=== PATIENT | female | born 1975 | race Caucasian/White ===

== ENCOUNTER 2019-04-13 14:09 | Emergency (ER) | payer SELFPAY ==
[2019-04-13] MEDS ORDERED: Sodium Chloride 0.9% 1,000 ML IV ONE (14:32)
--- NOTE | 2019-04-13 14:42 | EDM.PDOC ---
ED HPI GENERAL MEDICAL PROBLEM - General Chief Complaint: Syncope Stated Complaint: DIZZINESS Time Seen by Provider: 04/13/19 14:13 Source of Information: Reports: Patient History Limitations: Reports: No Limitations - History of Present Illness INITIAL COMMENTS - FREE TEXT/NARRATIVE: HISTORY AND PHYSICAL: History of present illness: She is a 43-year-old female who presents to the ED today with concern of an episode of dizziness causing her to fall at work just prior to arrival to the ED. Patient states she was on break and she was just going to call again when she started feeling dizzy and went to the ground and sat there. Patient states she did not lose consciousness and did not hit her head. Patient states that she is feeling a little bit better now but does feel somewhat weak. Patient states she has not eaten since yesterday. She denies any health history or any other symptoms or concerns. Patient denies fever, chills, chest pain, shortness of breath, or cough. Denies headache, neck stiff ness, change in vision, syncope, or near syncope. Denies nausea, vomiting, abdominal pain, diarrhea, constipation, or dysuria. Has not noted any blood in urine or stool. Patient has been eating and drinking appropriately. Review of systems: As per history of present illness and below otherwise all systems reviewed and negative. Past medical history: As per history of present illness and as reviewed below otherwise noncontributory. Surgical history: As per history of present illness and as reviewed below otherwise noncontributory. Social history: See social history for further information Family history: As per history of present illness and as reviewed below otherwise noncontributory. Physical exam: General: Patient is alert, oriented, and in no acute distress. Patient laying comfortably on exam table. HEENT: Atraumatic, normocephalic, pupils equal and reactive bilaterally, negative for conjunctival pallor or scleral icterus, mucous membranes moist, TMs normal bilaterally, throat clear, neck supple, nontender, trachea midline. No drooling or trismus noted. No meningeal signs. No hot potato voice noted. Lungs: Clear to auscultation, breath sounds equal bilaterally, chest nontender. Heart: S1S2, regular rate and rhythm without overt murmur Abdomen: Thin, Soft, nondistended, nontender. Negative for masses or hepatosplenomegaly. Negative for costovertebral tenderness. Pelvis: Stable nontender. Genitourinary: Deferred. Rectal: Deferred. Skin: Intact, warm, dry. No lesions or rashes noted. Extremities: Atraumatic, negative for cords or calf pain. Neurovascular unremarkable. Neuro: Awake, alert, oriented. Cranial nerves II through XII unremarkable. Cerebellum unremarkable. Motor and sensory unremarkable throughout. Exam nonfocal. Notes: Discussed importance for follow-up with a primary care provider. Voices understanding and is agreeable to plan of care. Denies any further questions or concerns at this time. Diagnostics: EKG, bedside glucose, CBC, CMP, UA, Blood ketone, VBG, Hgb A1C, Udrug, lipase, orthostatic vitals, head CT Therapeutics: NS, Rocephin Prescription: Bactrim DS Impression: Episode of dizziness, improved Urinary tract infection Drug abuse Plan: 1. Take medication as prescribed. You can alternate ibuprofen and Tylenol as directed for pain and discomfort. 2. Follow-up with primary care provider as discussed. Return to the ED as needed and as discussed. Definitive disposition and diagnosis as appropriate pending reevaluation and review of above. - Related Data Allergies Allergy/AdvReac Type Severity Reaction Status Date / Time No Known Allergies Allergy Verified 04/13/19 14:22 Home Meds: Home Meds . [No Known Home Meds] 04/13/19 [History] Past Medical History - Past Health History Medical/Surgical History: Denies Medical/Surgical History - Infectious Disease History Infectious Disease History: Reports: None Social & Family History - Family History Family Medical History: Noncontributory - Tobacco Use Smoking Status *Q: Current Every Day Smoker Years of Tobacco use: 30 Packs/Tins Daily: 0.5 - Caffeine Use Caffeine Use: Reports: Coffee - Recreational Drug Use Recreational Drug Use: No ED ROS GENERAL - Review of Systems Review Of Systems: Comprehensive ROS is negative, except as noted in HPI. ED EXAM, GENERAL - Physical Exam Exam: See Below (see dictation) Course - Vital Signs Last Recorded V/S: Last Vital Signs Temp 96.1 F 04/13/19 14:23 Pulse 70 04/13/19 14:23 Resp 16 04/13/19 14:23 BP 94/56 L 04/13/19 14:23 Pulse Ox 97 04/13/19 14:23 Orthostatic Blood Pressure [ 100/69 Standing] Orthostatic Blood Pressure [ 99/59 Sitting] Orthostatic Blood Pressure [ 96/54 Supine] - Orders/Labs/Meds Orders: Active Orders 24 hr Category Date Time Status EKG Documentation Completion [RC] STAT Care 04/13/19 14:32 Active Orthostatic Vital Signs [RC] ASDIRECTED Care 04/13/19 14:33 Active CULTURE URINE [RM] Stat Lab 04/13/19 15:50 Received Sodium Chloride 0.9% [Normal Saline] 1,000 ml Med 04/13/19 17:00 Active IV ASDIRECTED Medication Orders Sodium Chloride (Normal Saline) 1,000 mls @ 125 mls/hr IV ASDIRECTED ANTHONY Labs: Laboratory Tests 04/13/19 04/13/19 04/13/19 Range/Units 14:21 14:52 14:52 WBC 11.12 H (4.0-11.0) K/uL RBC 4.27 L (4.30-5.90) M/uL Hgb 13.2 (12.0-16.0) g/dL Hct 39.7 (36.0-46.0) % MCV 93.0 (80.0-98.0) fL MCH 30.9 (27.0-32.0) pg MCHC 33.2 (31.0-37.0) g/dL RDW Std Deviation 45.8 (28.0-62.0) fl RDW Coeff of Steven 13 (11.0-15.0) % Plt Count 205 (150-400) K/uL MPV 10.70 (7.40-12.00) fL Neut % (Auto) 81.8 H (48.0-80.0) % Lymph % (Auto) 12.2 L (16.0-40.0) % [place] % (Auto) 4.3 (0.0-15.0) % Eos % (Auto) 1.5 (0.0-7.0) % Baso % (Auto) 0.2 (0.0-1.5) % Neut # (Auto) 9.1 H (1.4-5.7) K/uL Lymph # (Auto) 1.4 (0.6-2.4) K/uL [place] # (Auto) 0.5 (0.0-0.8) K/uL Eos # (Auto) 0.2 (0.0-0.7) K/uL Baso # (Auto) 0.0 (0.0-0.1) K/uL Nucleated RBC % 0.0 /100WBC Nucleated RBCs # 0 K/uL VBG pH (7.31-7.41) VBG pCO2 (35-45) mmHG VBG pO2 (30-40) mmHG VBG HCO3 (22-30) mEq/L VBG Total CO2 (41-51) mmol/L VBG Base Excess (-3.0-3.0) Sodium 140 (136-145) mmol/L Potassium 3.3 L (3.5-5.1) mmol/L Chloride 105 (98-107) mmol/L Carbon Dioxide 24.6 (21.0-32.0) mmol/L BUN 22 H (7.0-18.0) mg/dL Creatinine 0.9 (0.6-1.0) mg/dL Est Cr Clr Drug Dosing 82.47 mL/min Estimated GFR (MDRD) > 60.0 ml/min Glucose 123 H (74-106) mg/dL POC Glucose 202 H (60-110) mg/dL Hemoglobin A1c (4.5-6.2) % Calcium 8.7 (8.5-10.1) mg/dL Total Bilirubin 0.8 (0.2-1.0) mg/dL AST 10 L (15-37) IU/L ALT 19 (14-63) IU/L Alkaline Phosphatase 46 (46-116) U/L Troponin I < 0.050 (0.000-0.056) ng/mL Total Protein 6.5 (6.4-8.2) g/dL Albumin 3.5 (3.4-5.0) g/dL Globulin 3.0 (2.6-4.0) g/dL Albumin/Globulin Ratio 1.2 (0.9-1.6) Lipase 94 (73-393) U/L HCG, Qual (NEG) Urine Color Urine Appearance Urine pH (5.0-8.0) Ur Specific [place] (1.001-1.035) Urine Protein (NEGATIVE) mg/dL Urine Glucose (UA) (NEGATIVE) mg/dL Urine Ketones (NEGATIVE) mg/dL Urine Occult Blood (NEGATIVE) Urine Nitrite (NEGATIVE) Urine Bilirubin (NEGATIVE) Urine Urobilinogen (<2.0) EU/dL Ur Leukocyte Esterase (NEGATIVE) Urine RBC (0-2/HPF) Urine WBC (0-5/HPF) Ur Epithelial Cells (NONE-FEW) Urine Bacteria (NEGATIVE) Urine Mucus (NONE-MOD) Urine Trichomonas (NEGATIVE) Urine Opiates Screen (NEGATIVE) Ur Oxycodone Screen (NEGATIVE) Urine Methadone Screen (NEGATIVE) Ur Barbiturates Screen (NEGATIVE) Ur Phencyclidine Scrn (NEGATIVE) Ur Amphetamine Screen (NEGATIVE) U Methamphetamines Scrn (NEGATIVE) U Benzodiazepines Scrn (NEGATIVE) U Cocaine Metab Screen (NEGATIVE) U Marijuana (THC) Screen (NEGATIVE) Ketones (NEG) 04/13/19 04/13/19 04/13/19 Range/Units 14:52 14:52 14:52 WBC (4.0-11.0) K/uL RBC (4.30-5.90) M/uL Hgb (12.0-16.0) g/dL Hct (36.0-46.0) % MCV (80.0-98.0) fL MCH (27.0-32.0) pg MCHC (31.0-37.0) g/dL RDW Std Deviation (28.0-62.0) fl RDW Coeff of Steven (11.0-15.0) % Plt Count (150-400) K/uL MPV (7.40-12.00) fL Neut % (Auto) (48.0-80.0) % Lymph % (Auto) (16.0-40.0) % [place] % (Auto) (0.0-15.0) % Eos % (Auto) (0.0-7.0) % Baso % (Auto) (0.0-1.5) % Neut # (Auto) (1.4-5.7) K/uL Lymph # (Auto) (0.6-2.4) K/uL [place] # (Auto) (0.0-0.8) K/uL Eos # (Auto) (0.0-0.7) K/uL Baso # (Auto) (0.0-0.1) K/uL Nucleated RBC % /100WBC Nucleated RBCs # K/uL VBG pH 7.33 (7.31-7.41) VBG pCO2 45 (35-45) mmHG VBG pO2 26 L (30-40) mmHG VBG HCO3 24 (22-30) mEq/L VBG Total CO2 22 L (41-51) mmol/L VBG Base Excess -2.1 (-3.0-3.0) Sodium (136-145) mmol/L Potassium (3.5-5.1) mmol/L Chloride (98-107) mmol/L Carbon Dioxide (21.0-32.0) mmol/L BUN (7.0-18.0) mg/dL Creatinine (0.6-1.0) mg/dL Est Cr Clr Drug Dosing mL/min Estimated GFR (MDRD) ml/min Glucose (74-106) mg/dL POC Glucose (60-110) mg/dL Hemoglobin A1c (4.5-6.2) % Calcium (8.5-10.1) mg/dL Total Bilirubin (0.2-1.0) mg/dL AST (15-37) IU/L ALT (14-63) IU/L Alkaline Phosphatase (46-116) U/L Troponin I (0.000-0.056) ng/mL Total Protein (6.4-8.2) g/dL Albumin (3.4-5.0) g/dL Globulin (2.6-4.0) g/dL Albumin/Globulin Ratio (0.9-1.6) Lipase (73-393) U/L HCG, Qual NEGATIVE (NEG) Urine Color Urine Appearance Urine pH (5.0-8.0) Ur Specific [place] (1.001-1.035) Urine Protein (NEGATIVE) mg/dL Urine Glucose (UA) (NEGATIVE) mg/dL Urine Ketones (NEGATIVE) mg/dL Urine Occult Blood (NEGATIVE) Urine Nitrite (NEGATIVE) Urine Bilirubin (NEGATIVE) Urine Urobilinogen (<2.0) EU/dL Ur Leukocyte Esterase (NEGATIVE) Urine RBC (0-2/HPF) Urine WBC (0-5/HPF) Ur Epithelial Cells (NONE-FEW) Urine Bacteria (NEGATIVE) Urine Mucus (NONE-MOD) Urine Trichomonas (NEGATIVE) Urine Opiates Screen (NEGATIVE) Ur Oxycodone Screen (NEGATIVE) Urine Methadone Screen (NEGATIVE) Ur Barbiturates Screen (NEGATIVE) Ur Phencyclidine Scrn (NEGATIVE) Ur Amphetamine Screen (NEGATIVE) U Methamphetamines Scrn (NEGATIVE) U Benzodiazepines Scrn (NEGATIVE) U Cocaine Metab Screen (NEGATIVE) U Marijuana (THC) Screen (NEGATIVE) Ketones NEGATIVE (NEG) 04/13/19 04/13/19 04/13/19 Range/Units 14:52 15:50 15:50 WBC (4.0-11.0) K/uL RBC (4.30-5.90) M/uL Hgb (12.0-16.0) g/dL Hct (36.0-46.0) % MCV (80.0-98.0) fL MCH (27.0-32.0) pg MCHC (31.0-37.0) g/dL RDW Std Deviation (28.0-62.0) fl RDW Coeff of Steven (11.0-15.0) % Plt Count (150-400) K/uL MPV (7.40-12.00) fL Neut % (Auto) (48.0-80.0) % Lymph % (Auto) (16.0-40.0) % [place] % (Auto) (0.0-15.0) % Eos % (Auto) (0.0-7.0) % Baso % (Auto) (0.0-1.5) % Neut # (Auto) (1.4-5.7) K/uL Lymph # (Auto) (0.6-2.4) K/uL [place] # (Auto) (0.0-0.8) K/uL Eos # (Auto) (0.0-0.7) K/uL Baso # (Auto) (0.0-0.1) K/uL Nucleated RBC % /100WBC Nucleated RBCs # K/uL VBG pH (7.31-7.41) VBG pCO2 (35-45) mmHG VBG pO2 (30-40) mmHG VBG HCO3 (22-30) mEq/L VBG Total CO2 (41-51) mmol/L VBG Base Excess (-3.0-3.0) Sodium (136-145) mmol/L Potassium (3.5-5.1) mmol/L Chloride (98-107) mmol/L Carbon Dioxide (21.0-32.0) mmol/L BUN (7.0-18.0) mg/dL Creatinine (0.6-1.0) mg/dL Est Cr Clr Drug Dosing mL/min Estimated GFR (MDRD) ml/min Glucose (74-106) mg/dL POC Glucose (60-110) mg/dL Hemoglobin A1c 5.3 (4.5-6.2) % Calcium (8.5-10.1) mg/dL Total Bilirubin (0.2-1.0) mg/dL AST (15-37) IU/L ALT (14-63) IU/L Alkaline Phosphatase (46-116) U/L Troponin I (0.000-0.056) ng/mL Total Protein (6.4-8.2) g/dL Albumin (3.4-5.0) g/dL Globulin (2.6-4.0) g/dL Albumin/Globulin Ratio (0.9-1.6) Lipase (73-393) U/L HCG, Qual (NEG) Urine Color YELLOW Urine Appearance SLT CLOUDY Urine pH 6.0 (5.0-8.0) Ur Specific [place] 1.025 (1.001-1.035) Urine Protein NEGATIVE (NEGATIVE) mg/dL Urine Glucose (UA) NEGATIVE (NEGATIVE) mg/dL Urine Ketones NEGATIVE (NEGATIVE) mg/dL Urine Occult Blood TRACE-INTACT H (NEGATIVE) Urine Nitrite POSITIVE H (NEGATIVE) Urine Bilirubin NEGATIVE (NEGATIVE) Urine Urobilinogen 1.0 (<2.0) EU/dL Ur Leukocyte Esterase MODERATE H (NEGATIVE) Urine RBC 3-5 (0-2/HPF) Urine WBC 25-30 (0-5/HPF) Ur Epithelial Cells MANY (NONE-FEW) Urine Bacteria 4+ H (NEGATIVE) Urine Mucus LIGHT (NONE-MOD) Urine Trichomonas PRESENT (NEGATIVE) Urine Opiates Screen NEGATIVE (NEGATIVE) Ur Oxycodone Screen NEGATIVE (NEGATIVE) Urine Methadone Screen NEGATIVE (NEGATIVE) Ur Barbiturates Screen NEGATIVE (NEGATIVE) Ur Phencyclidine Scrn NEGATIVE (NEGATIVE) Ur Amphetamine Screen POSITIVE (NEGATIVE) U Methamphetamines Scrn POSITIVE (NEGATIVE) U Benzodiazepines Scrn NEGATIVE (NEGATIVE) U Cocaine Metab Screen NEGATIVE (NEGATIVE) U Marijuana (THC) Screen NEGATIVE (NEGATIVE) Ketones (NEG) Meds: Medications Generic Name Dose Route Start Last Admin Trade Name Freq PRN Reason Stop Dose Admin Sodium Chloride 1,000 mls @ 125 mls/hr 04/13/19 17:00 Normal Saline IV ASDIRECTED ANTHONY Discontinued Medications Generic Name Dose Route Start Last Admin Trade Name Nida HASASN Reason Stop Dose Admin Sodium Chloride 1,000 mls @ 999 mls/hr 04/13/19 14:32 04/13/19 14:53 Normal Saline IV 04/13/19 15:32 999 mls/hr BOLUS ONE Administration Ceftriaxone Sodium/Dextrose 1 50 mls @ 100 mls/hr 04/13/19 16:22 04/13/19 16: 47 gm/ Premix IV 04/13/19 16:51 100 mls/hr ONETIME ONE Administration Departure - Departure Time of Disposition: 17:05 Disposition: Home, Self-Care 01 Clinical Impression: Episode of dizziness, Drug abuse Urinary tract infection Qualifiers: Urinary tract infection type: acute cystitis Hematuria presence: with hematuria Qualified Code(s): N30.01 - Acute cystitis with hematuria - Discharge Information Referrals: PCP,None [Primary Care Provider] - Forms: ED Department Discharge Additional Instructions: The following information is given to patients seen in the emergency department who are being discharged to home. This information is to outline your options for follow-up care. We provide all patients seen in our emergency department with a follow-up referral. The need for follow-up, as well as the timing and circumstances, are variable depending upon the specifics of your emergency department visit. If you don't have a primary care physician on staff, we will provide you with a referral. We always advise you to contact your personal physician following an emergency department visit to inform them of the circumstance of the visit and for follow-up with them and/or the need for any referrals to a consulting specialist. The emergency department will also refer you to a specialist when appropriate. This referral assures that you have the opportunity for follow-up care with a specialist. All of these measure are taken in an effort to provide you with optimal care, which includes your follow-up. Under all circumstances we always encourage you to contact your private physician who remains a resource for coordinating your care. When calling for follow-up care, please make the office aware that this follow-up is from your recent emergency room visit. If for any reason you are refused follow-up, please contact the [facility] Emergency Department at and asked to speak to the emergency department charge nurse. [address] [facility] [address] [place] [address] [facility] [address] [place] [address] 1. Take medication as prescribed. You can alternate ibuprofen and Tylenol as directed for pain and discomfort. 2. Follow-up with primary care provider as discussed. Return to the ED as needed and as discussed. Sepsis Event Note - Evaluation Sepsis Screening Result: No Definite Risk - Focused Exam Vital Signs: Vital Signs Temp Pulse Resp BP Pulse Ox 04/13/19 14:23 96.1 F 70 16 94/56 L 97 Date Exam was Performed: 04/13/19 Time Exam was Performed: 17:05 - My Orders Last 24 Hours: My Active Orders 04/13/19 14:32 EKG Documentation Completion [RC] STAT 04/13/19 14:33 Orthostatic Vital Signs [RC] ASDIRECTED 04/13/19 15:50 CULTURE URINE [RM] Stat 04/13/19 17:00 Sodium Chloride 0.9% [Normal Saline] 1,000 ml IV ASDIRECTED - Assessment/Plan Last 24 Hours: My Active Orders 04/13/19 14:32 EKG Documentation Completion [RC] STAT 04/13/19 14:33 Orthostatic Vital Signs [RC] ASDIRECTED 04/13/19 15:50 CULTURE URINE [RM] Stat 04/13/19 17:00 Sodium Chloride 0.9% [Normal Saline] 1,000 ml IV ASDIRECTED
[2019-04-13 15:19] LABS: HEMOGLOBIN A1C 5.3 % (4.5-6.2)
[2019-04-13 15:28] LABS: BLOOD UREA NITROGEN,BUN 22 mg/dL (7.0-18.0); CARBON DIOXIDE,CO2 24.6 mmol/L (21.0-32.0); CHLORIDE,CL 105 mmol/L (98-107); GLUCOSE RANDOM 123 mg/dL (74-106); LIPASE 94 U/L (73-393); POTASSIUM,K 3.3 mmol/L (3.5-5.1); SODIUM,NA 140 mmol/L (136-145)
--- NOTE | 2019-04-13 15:34 | CR ---
Chest: Portable view of the chest was obtained. Comparison: No previous chest x-ray. Heart size and mediastinum are normal. Lungs are clear. Bony structures are grossly intact. Impression: 1. Nothing acute is seen on portable chest x-ray. Diagnostic code #1 Study was dictated in [place] Standard Time
[2019-04-13] MEDS ORDERED: cefTRIAXone 1 GM in Premix Bag 1 BAG IV ONE (16:22)
[2019-04-13] MEDS ORDERED: Sodium Chloride 0.9% 1,000 ML IV SCH (17:00)
--- NOTE | 2019-04-13 17:01 | CT ---
Head CT Technique: Multiple axial sections through the brain were obtained. Intravenous contrast was not utilized. Comparison: No prior intracranial imaging is available. Findings: Ventricles along with basal cisterns and sulci over the convexities are within normal limits for the patient's age. No abnormal parenchymal densities are seen. No evidence of intracranial hemorrhage. No midline shift or mass effect is seen. Bone window settings were reviewed. Visualized mastoid sinuses appear to be clear. Visualized paranasal sinuses show nothing acute. No acute calvarial abnormality is appreciated. Impression: 1. Nothing acute is appreciated on noncontrast head CT exam. Diagnostic code #1 Study was dictated in [place] Standard Time
== END 2019-04-13 17:36 | disposition home or self-care (01) ==
LOC: MW.ED 14:09
DX: F19.10 Other psychoactive substance abuse, uncomplicated (principal); N30.01 Acute cystitis with hematuria; F17.210 Nicotine dependence, cigarettes, uncomplicated
CPT/HCPCS: 36415; 70450; 71045; 80053; 80305; 81001; 82009; 82803; 82962; 83036; 83690; 84484; 84703; 85025; 87086; 87088; 87186; 93005; 96361; 96374; 99284; J0696; J7030; 99283

== ENCOUNTER 2019-05-01 12:40 | Observation (INO) | payer OTHER ==
[2019-05-01 14:05] LABS: BLOOD UREA NITROGEN,BUN 21 mg/dL (7.0-18.0); CARBON DIOXIDE,CO2 22.6 mmol/L (21.0-32.0); CHLORIDE,CL 104 mmol/L (98-107); GLUCOSE RANDOM 92 mg/dL (74-106); POTASSIUM,K 4.1 mmol/L (3.5-5.1); SODIUM,NA 140 mmol/L (136-145)
--- NOTE | 2019-05-01 14:23 | EDM.PDOC ---
ED HPI GENERAL MEDICAL PROBLEM - General Chief Complaint: Syncope Stated Complaint: PASSED OUT Time Seen by Provider: 05/01/19 13:13 - History of Present Illness INITIAL COMMENTS - FREE TEXT/NARRATIVE: 43-year-old female no medical problems, daily smoker , presenting to ER for syncopal episode. Patient felt warm and fainted. No active symptoms upon arrival to ER. Patient denies any incontinence denies any tongue biting. Similar episode day prior. No leg pain no leg swelling. No cough no headache no vomiting. Does not know her family history because she is adopted. denied chest pain preceding the episode. - Related Data Allergies Allergy/AdvReac Type Severity Reaction Status Date / Time No Known Allergies Allergy Verified 05/01/19 12:45 Home Meds: Home Meds . [No Known Home Meds] 04/13/19 [History] Past Medical History - Past Health History Medical/Surgical History: Denies Medical/Surgical History Other [employer] History: 2 c-sections - Infectious Disease History Infectious Disease History: Reports: None Social & Family History - Family History Family Medical History: Noncontributory - Tobacco Use Smoking Status *Q: Current Every Day Smoker Years of Tobacco use: 22 Packs/Tins Daily: 0.5 - Caffeine Use Caffeine Use: Reports: Coffee, Soda - Recreational Drug Use Recreational Drug Use: Yes Recreational Drug Type: Reports: Methamphetamine Other Recreational Drug Type: Last done 4 days ago. ED ROS GENERAL - Review of Systems Review Of Systems: See Below Constitutional: Reports: No Symptoms HEENT: Reports: No Symptoms Respiratory: Reports: No Symptoms Cardiovascular: Reports: Chest Pain Endocrine: Reports: No Symptoms GI/Abdominal: Reports: No Symptoms : Reports: No Symptoms Musculoskeletal: Reports: No Symptoms Skin: Reports: No Symptoms Neurological: Reports: No Symptoms Psychiatric: Reports: No Symptoms Hematologic/Lymphatic: Reports: No Symptoms Immunologic: Reports: No Symptoms ED EXAM, GENERAL - Physical Exam Exam: See Below General Appearance: Alert Ears: Normal External Exam Nose: Normal Inspection Throat/Mouth: Normal Inspection Neck: Normal Inspection, Supple Respiratory/Chest: No Respiratory Distress Cardiovascular: Normal Peripheral Pulses, Regular Rate, Rhythm GI/Abdominal: Soft, Non-Tender Extremities: Normal Inspection Neurological: Alert, CN II-XII Intact, Normal Cognition EKG INTERPRETATION Rhythm: NSR P-Wave: Present QRS: Normal ST-T: Normal QT: Normal Course - Vital Signs Last Recorded V/S: Last Vital Signs Temp 97.1 F 05/01/19 12:45 Pulse 98 05/01/19 12:45 Resp 15 05/01/19 12:45 BP 118/66 05/01/19 12:45 Pulse Ox 96 05/01/19 12:45 - Orders/Labs/Meds Orders: Active Orders 24 hr Category Date Time Status Cardiac Monitoring [RC] . DIRECTED Care 05/01/19 13:19 Active EKG 12 Lead [EKG Documentation Completion] [RC] STAT Care 05/01/19 12:51 Active Orthostatic Vital Signs [RC] ASDIRECTED Care 05/01/19 15:05 Active CXR [Chest 2V] [CR] Stat Exams 05/01/19 14:58 Ordered Labs: Laboratory Tests 05/01/19 05/01/19 05/01/19 Range/Units 13:20 13:37 13:37 WBC 9.88 (4.0-11.0) K/uL RBC 4.78 (4.30-5.90) M/uL Hgb 15.0 (12.0-16.0) g/dL Hct 44.5 (36.0-46.0) % MCV 93.1 (80.0-98.0) fL MCH 31.4 (27.0-32.0) pg MCHC 33.7 (31.0-37.0) g/dL RDW Std Deviation 45.5 (28.0-62.0) fl RDW Coeff of Steven 13 (11.0-15.0) % Plt Count 323 (150-400) K/uL MPV 10.40 (7.40-12.00) fL Neut % (Auto) 77.7 (48.0-80.0) % Lymph % (Auto) 15.0 L (16.0-40.0) % [place] % (Auto) 6.6 (0.0-15.0) % Eos % (Auto) 0.6 (0.0-7.0) % Baso % (Auto) 0.1 (0.0-1.5) % Neut # (Auto) 7.7 H (1.4-5.7) K/uL Lymph # (Auto) 1.5 (0.6-2.4) K/uL [place] # (Auto) 0.7 (0.0-0.8) K/uL Eos # (Auto) 0.1 (0.0-0.7) K/uL Baso # (Auto) 0.0 (0.0-0.1) K/uL Nucleated RBC % 0.0 /100WBC Nucleated RBCs # 0 K/uL Sodium 140 (136-145) mmol/L Potassium 4.1 (3.5-5.1) mmol/L Chloride 104 (98-107) mmol/L Carbon Dioxide 22.6 (21.0-32.0) mmol/L BUN 21 H (7.0-18.0) mg/dL Creatinine 1.1 H (0.6-1.0) mg/dL Est Cr Clr Drug Dosing 69.88 mL/min Estimated GFR (MDRD) 54.7 ml/min Glucose 92 (74-106) mg/dL Calcium 9.0 (8.5-10.1) mg/dL Total Bilirubin 1.5 H (0.2-1.0) mg/dL AST 13 L (15-37) IU/L ALT 31 (14-63) IU/L Alkaline Phosphatase 75 (46-116) U/L Troponin I < 0.050 (0.000-0.056) ng/mL Total Protein 7.3 (6.4-8.2) g/dL Albumin 4.0 (3.4-5.0) g/dL Globulin 3.3 (2.6-4.0) g/dL Albumin/Globulin Ratio 1.2 (0.9-1.6) HCG, Qual NEGATIVE (NEG) - Re-Assessments/Exams Free Text/Narrative Re-Assessment/Exam: 05/01/19 15: Smoker presenting for unexplained syncope. She also had a syncopal episode day prior. CT head was negative electrolytes were okay. unclear family history. Will admit for telemetry and further cardiac work-up. Departure - Departure Time of Disposition: 15:07 Disposition: Admitted As Inpatient 68 Clinical Impression: Syncope Referrals: PCP,None [Primary Care Provider] - Forms: ED Department Discharge Sepsis Event Note - Evaluation Sepsis Screening Result: No Definite Risk - Focused Exam Vital Signs: Vital Signs Temp Pulse Resp BP Pulse Ox 05/01/19 12:45 97.1 F 98 15 118/66 96 Date Exam was Performed: 05/01/19 Time Exam was Performed: 15:07 - My Orders Last 24 Hours: My Active Orders 05/01/19 12:51 EKG 12 Lead [EKG Documentation Completion] [RC] STAT 05/01/19 13:19 Cardiac Monitoring [RC] . DIRECTED 05/01/19 14:58 CXR [Chest 2V] [CR] Stat - Assessment/Plan Last 24 Hours: My Active Orders 05/01/19 12:51 EKG 12 Lead [EKG Documentation Completion] [RC] STAT 05/01/19 13:19 Cardiac Monitoring [RC] . DIRECTED 05/01/19 14:58 CXR [Chest 2V] [CR] Stat
--- NOTE | 2019-05-01 14:43 | CT ---
Head CT Technique: Multiple axial sections through the brain were obtained. Intravenous contrast was not utilized. Comparison: Prior head CT study of 04/13/19. Findings: Ventricles along with basal cisterns and sulci over the convexities are within normal limits for the patient's age. No abnormal parenchymal densities are seen. No evidence of intracranial hemorrhage. No midline shift or mass-effect is seen. Bone window settings were reviewed which shows no acute calvarial abnormality. Mastoid sinuses show nothing acute. Visualized paranasal sinuses also show nothing acute. Impression: 1. Nothing acute is appreciated on noncontrast head CT exam. Diagnostic code #1 This report was dictated in [place] Standard Time
[2019-05-01] MEDS ORDERED: Sodium Chloride 0.9% 1,000 ML IV ONE (15:21)
--- NOTE | 2019-05-01 15:22 | CR ---
Chest: 2 views of the chest were obtained. Comparison: Prior chest x-ray of 04/13/19. Heart size and mediastinum are normal. Lungs are clear with no acute parenchymal change. Bony structures are unremarkable for the patient's age. Impression: 1. Nothing acute is appreciated on 2 view chest x-ray. Diagnostic code #2 This report was dictated in [place] Standard Time
[2019-05-01] MEDS ORDERED: Acetaminophen 325 MG Tab PO PRN (15:44)
[2019-05-01] MEDS ORDERED: Ondansetron 4 MG/2 ML SDV IVPUSH PRN (15:44)
--- NOTE | 2019-05-01 15:54 | PCM.HP.2 ---
H&P History of Present Illness - General Date of Service: 05/01/19 Admit Problem/Dx: Admission Diagnosis/Problem Admission Diagnosis/Problem Syncope Source of Information: Patient History Limitations: Reports: No Limitations - History of Present Illness Initial Comments - Free Text/Narative: This 43 year old female with pmh of dizziness and syncope along with Methamphetamine use and tobacco use presented to the ED today with concerns of syncope. She reports last night she got up and went to the bathroom and passed out after she got in the bathroom, woke up shortly after by roommate who heard her fall. Then today she was at work and got up from sitting felt very flushed and warm then suddenly passed out again. She denies palpitations, seizure activity, no urine/bowel incontinence with episodes. No increase in dizziness with head movement, no fevers or chills, no sinus congestion or ear pain. She reports she used methamphetamines 4 days ago with her boyfriend, she reports she doesn't use it often but uses it to be intimate with her boyfriend. She reports she eats and drinks well when she uses, but after she is not hungry and doesn't drink much. She denies abdominal pain, diarrhea or constipation. No dysuria or other urinary concerns. She otherwise is healthy, no HTN or DM. She smokes cigarettes 1/4 ppd, no alcohol use and uses meth as stated above. Unsure of family history as she was adopted. In the ED CBC WNL, hgb 15.0. BUN 22, Cr 1.0, elevated from previous ED visits. Bili 1.5, no ALT or AST elevation. EKG SR, no block or bradycardia noted. BP initialy 118 SBP. Orthostatic VS obtained which showed BP dropping from high 90s to 80s SBP and she became dizzy with standing. 1 L NS bolus given at that time. Will admit observation for syncope Onset of Symptoms: Reports: Sudden - Related Data Allergies/Adverse Reactions: Allergies Allergy/AdvReac Type Severity Reaction Status Date / Time No Known Allergies Allergy Verified 05/01/19 12:45 Home Medications: Home Meds . [No Known Home Meds] 04/13/19 [History] Past Medical History - Past Health History Medical/Surgical History: Denies Medical/Surgical History Cardiovascular History: Reports: Syncope. Denies: Afib, CAD, Hypertension, [place] Respiratory History: Reports: None. Denies: Asthma, COPD Gastrointestinal History: Reports: None. Denies: GERD Genitourinary History: Reports: None Other OB/BYN History: 2 c-sections Psychiatric History: Reports: None - Infectious Disease History Infectious Disease History: Reports: None - Past Surgical History Female Surgical History: Reports: Section (x2) Social & Family History - Family History Family Medical History: Noncontributory - Tobacco Use Smoking Status *Q: Current Every Day Smoker Years of Tobacco use: 22 Packs/Tins Daily: 0.5 - Caffeine Use Caffeine Use: Reports: Coffee, Soda - Alcohol Use Alcohol Use History: No - Recreational Drug Use Recreational Drug Use: Yes Recreational Drug Type: Reports: Methamphetamine Other Recreational Drug Type: Last done 4 days ago. Recreational Drug Use Frequency: Binges H&P Review of Systems - Review of Systems: Review Of Systems: See Below General: Reports: Decreased Appetite. Denies: Fever, Chills, Malaise, Weakness HEENT: Reports: Vertigo (prior to syncope). Denies: Headaches Cardiovascular: Reports: Syncope Gastrointestinal: Reports: No Symptoms. Denies: Abdominal Pain, Black Stool, Bloody Stool, Nausea, Vomiting Genitourinary: Reports: No Symptoms. Denies: Dysuria, Frequency Musculoskeletal: Reports: No Symptoms. Denies: Neck Pain Skin: Reports: No Symptoms Psychiatric: Reports: No Symptoms Neurological: Reports: No Symptoms Hematologic/Lymphatic: Reports: No Symptoms Immunologic: Reports: No Symptoms Exam - Exam Exam: See Below - Vital Signs Vital Signs: Last Vital Signs Temp 97.1 F 05/01/19 12:45 Pulse 86 05/01/19 15:27 Resp 18 05/01/19 15:27 BP 91/63 05/01/19 15:27 Pulse Ox 96 05/01/19 15:27 Orthostatic Blood Pressure [ 84/51 Standing] Orthostatic Blood Pressure [ 87/51 Sitting] Orthostatic Blood Pressure [ 96/49 Supine] Weight: 65.771 kg - Exam Quality Assessment: DVT Prophylaxis (SCDs). No: Supplemental Oxygen General: Alert, Oriented Neck: Supple, Trachea Midline Lungs: Clear to Auscultation, Normal Respiratory Effort Cardiovascular: Regular Rate, Regular Rhythm GI/Abdominal Exam: Normal Bowel Sounds, Soft, Non-Tender, No Distention Extremities: Normal Inspection, Normal Range of Motion, Non-Tender, No Pedal Edema Skin: Warm, Dry Neurological: Cranial Nerves Intact Neuro Extensive - Mental Status: Alert, Oriented x3 Neuro Extensive - Motor, Sensory, Reflexes: CN II-XII Intact, Normal Gait - Patient Data Lab Results Last 24 hrs: Laboratory Results - last 24 hr 05/01/19 05/01/19 05/01/19 Range/Units 13:20 13:37 13:37 WBC 9.88 (4.0-11.0) K/uL RBC 4.78 (4.30-5.90) M/uL Hgb 15.0 (12.0-16.0) g/dL Hct 44.5 (36.0-46.0) % MCV 93.1 (80.0-98.0) fL MCH 31.4 (27.0-32.0) pg MCHC 33.7 (31.0-37.0) g/dL RDW Std Deviation 45.5 (28.0-62.0) fl RDW Coeff of Steven 13 (11.0-15.0) % Plt Count 323 (150-400) K/uL MPV 10.40 (7.40-12.00) fL Neut % (Auto) 77.7 (48.0-80.0) % Lymph % (Auto) 15.0 L (16.0-40.0) % [place] % (Auto) 6.6 (0.0-15.0) % Eos % (Auto) 0.6 (0.0-7.0) % Baso % (Auto) 0.1 (0.0-1.5) % Neut # (Auto) 7.7 H (1.4-5.7) K/uL Lymph # (Auto) 1.5 (0.6-2.4) K/uL [place] # (Auto) 0.7 (0.0-0.8) K/uL Eos # (Auto) 0.1 (0.0-0.7) K/uL Baso # (Auto) 0.0 (0.0-0.1) K/uL Nucleated RBC % 0.0 /100WBC Nucleated RBCs # 0 K/uL Sodium 140 (136-145) mmol/L Potassium 4.1 (3.5-5.1) mmol/L Chloride 104 (98-107) mmol/L Carbon Dioxide 22.6 (21.0-32.0) mmol/L BUN 21 H (7.0-18.0) mg/dL Creatinine 1.1 H (0.6-1.0) mg/dL Est Cr Clr Drug Dosing 69.88 mL/min Estimated GFR (MDRD) 54.7 ml/min Glucose 92 (74-106) mg/dL Calcium 9.0 (8.5-10.1) mg/dL Total Bilirubin 1.5 H (0.2-1.0) mg/dL AST 13 L (15-37) IU/L ALT 31 (14-63) IU/L Alkaline Phosphatase 75 (46-116) U/L Troponin I < 0.050 (0.000-0.056) ng/mL Total Protein 7.3 (6.4-8.2) g/dL Albumin 4.0 (3.4-5.0) g/dL Globulin 3.3 (2.6-4.0) g/dL Albumin/Globulin Ratio 1.2 (0.9-1.6) HCG, Qual NEGATIVE (NEG) Result Diagrams: 05/01/19 13:37 05/01/19 13:37 Sepsis Event Note - Evaluation Sepsis Screening Result: No Definite Risk - Focused Exam Vital Signs: Vital Signs Temp Pulse Resp BP Pulse Ox 05/01/19 15:27 86 18 91/63 96 05/01/19 12:45 97.1 F 98 15 118/66 96 Date Exam was Performed: 05/01/19 Time Exam was Performed: 15:48 - Problem List (1) Syncope SNOMED Code(s): 662370005 ICD Code: R55 - SYNCOPE AND COLLAPSE Status: Acute Current Visit: Yes (2) Tobacco dependence SNOMED Code(s): 72693656 ICD Code: F17.200 - NICOTINE DEPENDENCE, UNSPECIFIED, UNCOMPLICATED Status : Chronic Current Visit: Yes (3) Drug abuse SNOMED Code(s): 04539592 ICD Code: F19.10 - OTHER PSYCHOACTIVE SUBSTANCE ABUSE, UNCOMPLICATED Status : Chronic Current Visit: No Problem List Initiated/Reviewed/Updated: Yes Orders Last 24hrs: Active Orders 24 hr Category Date Time Status Admission Status [Patient Status] [ADT] Stat ADT 05/01/19 15:08 Active Antiembolic Devices [RC] PER UNIT ROUTINE Care 02/24/20 15:46 Ordered Cardiac Monitoring [RC] . DIRECTED Care 05/01/19 13:19 Active EKG 12 Lead [EKG Documentation Completion] [RC] STAT Care 05/01/19 12:51 Active Intake and Output [RC] QSHIFT Care 05/01/19 15:44 Ordered Orthostatic Vital Signs [RC] AMPROC Care 05/02/19 06:00 Ordered Orthostatic Vital Signs [RC] ASDIRECTED Care 05/01/19 15:05 Active Oxygen Therapy [RC] PRN Care 05/01/19 15:44 Ordered Telemetry Monitoring [Cardiac Monitoring] [RC] . Care 05/01/19 15:17 Active DIRECTED Up ad Cheryle [RC] ASDIRECTED Care 05/01/19 15:44 Ordered VTE/DVT Education [RC] PER UNIT ROUTINE Care 05/01/19 15:44 Ordered Vital Signs [RC] Q4H Care 05/01/19 15:44 Ordered Regular Diet [DIET] Diet 05/01/19 Dinner Ordered CBC WITH AUTO DIFF [HEME] AM Lab 05/02/19 05:11 Ordered COMPREHENSIVE METABOLIC PN,CMP [CHEM] AM Lab 05/02/19 05:11 Ordered DRUG SCREEN, URINE [URCHEM] Stat Lab 05/01/19 15:16 Ordered UA RFX CRISSY AND CULT IF INDIC [URIN] Urgent Lab 05/01/19 15:16 Ordered Acetaminophen [Tylenol] Med 05/01/19 15:44 Ordered 650 mg PO Q4H PRN Ondansetron [Zofran] Med 05/01/19 15:44 Ordered 4 mg IVPUSH Q4H PRN Sodium Chloride 0.9% [Normal Saline] 1,000 ml Med 05/01/19 15:21 Active IV .Bolus Sodium Chloride 0.9% [Normal Saline] 1,000 ml Med 05/01/19 15:45 Ordered IV Q8H Sequential Compression Device [OM.PC] Per Unit Routine Oth 05/01/19 15:44 Ordered Resuscitation Status Routine Resus Stat 05/01/19 15:44 Ordered Medication Orders Acetaminophen (Tylenol) 650 mg PO Q4H PRN PRN Reason: Pain (Mild 1-3)/fever Sodium Chloride (Normal Saline) 1,000 mls @ 999 mls/hr IV .Bolus ONE Stop: 05/01/19 16:21 Last Admin: 05/01/19 15:27 Dose: 999 mls/hr Sodium Chloride (Normal Saline) 1,000 mls @ 125 mls/hr IV Q8H ANTHONY Ondansetron HCl (Zofran) 4 mg IVPUSH Q4H PRN PRN Reason: Nausea Assessment/Plan Comment:: This 43 year old female admitted with syncope 1. Syncope - Orthostatic hypotension noted, likely cause. Continue IV fluids overnight - Monitor on telemetry - recheck labwork in am - counseled on stopping methamphetamine use - Head CT negative, does not sound like BPPV. Dizziness occurs only after standing up and then she passes out. - Consider ZIO patch on discharge. 2. MIGUEL A - Mild, IVFs overnight. - Recheck bmp in am Diet: Regular VTE prophylaxis: SCDs CODE Status: Full Code Disposition: 1 day - Mortality Measure Prognosis:: Good
[2019-05-01] MEDS: Sodium Chloride 0.9% 1,000 ML IV SCH (17:51)
[2019-05-02] MEDS ORDERED: Sodium Chloride 0.9% 1,000 ML IV ONE (01:08)
[2019-05-02] MEDS: Sodium Chloride 0.9% 1,000 ML IV SCH ×4 (02:33→21:57)
[2019-05-02 06:38] LABS: BLOOD UREA NITROGEN,BUN 22 mg/dL (7.0-18.0); CARBON DIOXIDE,CO2 23.3 mmol/L (21.0-32.0); CHLORIDE,CL 110 mmol/L (98-107); GLUCOSE RANDOM 85 mg/dL (74-106); POTASSIUM,K 4.1 mmol/L (3.5-5.1); SODIUM,NA 144 mmol/L (136-145)
[2019-05-02] MEDS ORDERED: SUMAtriptan 50 MG Tab PO PRN (08:37)
--- NOTE | 2019-05-02 09:17 | PCM.PN ---
- General Info Date of Service: 05/02/19 Admission Dx/Problem (Free Text): Admission Diagnosis/Problem Admission Diagnosis/Problem Syncope Subjective Update: Feeling dizzy this morning, and reports she "passed out" like she did yesterday , but then slept. No chest pain or SOB. Reports migraine that started last night. Functional Status: Reports: Pain Controlled, Tolerating Diet, Ambulating, Urinating - Review of Systems General: Reports: No Symptoms HEENT: Reports: Headaches. Denies: Sore Throat, Visual Changes Pulmonary: Reports: No Symptoms. Denies: Shortness of Breath, Cough Cardiovascular: Reports: No Symptoms. Denies: Chest Pain Gastrointestinal: Reports: No Symptoms. Denies: Abdominal Pain, Nausea, Vomiting Genitourinary: Reports: No Symptoms. Denies: Dysuria, Frequency, Burning Musculoskeletal: Reports: No Symptoms Skin: Reports: No Symptoms Neurological: Reports: No Symptoms Psychiatric: Reports: No Symptoms - Patient Data Vitals - Most Recent: Last Vital Signs Temp 96.9 F 05/02/19 03:28 Pulse 72 05/02/19 03:28 Resp 17 05/02/19 03:28 BP 90/55 L 05/02/19 03:28 Pulse Ox 97 05/02/19 03:28 Orthostatic Blood Pressure [ 98/51 Standing] Orthostatic Blood Pressure [ 103/50 Sitting] Orthostatic Blood Pressure [ 99/51 Supine] Weight - Most Recent: 65.907 kg I&O - Last 24 Hours: Intake & Output 05/01/19 05/02/19 05/02/19 22:59 06:59 14:59 Intake Total 3058 Output Total 500 Balance 2558 Lab Results Last 24 Hours: Laboratory Results - last 24 hr 05/01/19 05/01/19 05/01/19 Range/Units 13:20 13:37 13:37 WBC 9.88 (4.0-11.0) K/uL RBC 4.78 (4.30-5.90) M/uL Hgb 15.0 (12.0-16.0) g/dL Hct 44.5 (36.0-46.0) % MCV 93.1 (80.0-98.0) fL MCH 31.4 (27.0-32.0) pg MCHC 33.7 (31.0-37.0) g/dL RDW Std Deviation 45.5 (28.0-62.0) fl RDW Coeff of Steven 13 (11.0-15.0) % Plt Count 323 (150-400) K/uL MPV 10.40 (7.40-12.00) fL Neut % (Auto) 77.7 (48.0-80.0) % Lymph % (Auto) 15.0 L (16.0-40.0) % [place] % (Auto) 6.6 (0.0-15.0) % Eos % (Auto) 0.6 (0.0-7.0) % Baso % (Auto) 0.1 (0.0-1.5) % Neut # (Auto) 7.7 H (1.4-5.7) K/uL Lymph # (Auto) 1.5 (0.6-2.4) K/uL [place] # (Auto) 0.7 (0.0-0.8) K/uL Eos # (Auto) 0.1 (0.0-0.7) K/uL Baso # (Auto) 0.0 (0.0-0.1) K/uL Nucleated RBC % 0.0 /100WBC Nucleated RBCs # 0 K/uL Sodium 140 (136-145) mmol/L Potassium 4.1 (3.5-5.1) mmol/L Chloride 104 (98-107) mmol/L Carbon Dioxide 22.6 (21.0-32.0) mmol/L BUN 21 H (7.0-18.0) mg/dL Creatinine 1.1 H (0.6-1.0) mg/dL Est Cr Clr Drug Dosing 69.88 mL/min Estimated GFR (MDRD) 54.7 ml/min Glucose 92 (74-106) mg/dL Calcium 9.0 (8.5-10.1) mg/dL Total Bilirubin 1.5 H (0.2-1.0) mg/dL AST 13 L (15-37) IU/L ALT 31 (14-63) IU/L Alkaline Phosphatase 75 (46-116) U/L Troponin I < 0.050 (0.000-0.056) ng/mL Total Protein 7.3 (6.4-8.2) g/dL Albumin 4.0 (3.4-5.0) g/dL Globulin 3.3 (2.6-4.0) g/dL Albumin/Globulin Ratio 1.2 (0.9-1.6) HCG, Qual NEGATIVE (NEG) 05/02/19 05/02/19 Range/Units 05:48 05:48 WBC 8.39 (4.0-11.0) K/uL RBC 4.06 L (4.30-5.90) M/uL Hgb 12.5 (12.0-16.0) g/dL Hct 38.3 (36.0-46.0) % MCV 94.3 (80.0-98.0) fL MCH 30.8 (27.0-32.0) pg MCHC 32.6 (31.0-37.0) g/dL RDW Std Deviation 46.5 (28.0-62.0) fl RDW Coeff of Steven 14 (11.0-15.0) % Plt Count 278 (150-400) K/uL MPV 10.60 (7.40-12.00) fL Neut % (Auto) 58.8 (48.0-80.0) % Lymph % (Auto) 30.9 (16.0-40.0) % [place] % (Auto) 8.0 (0.0-15.0) % Eos % (Auto) 2.1 (0.0-7.0) % Baso % (Auto) 0.2 (0.0-1.5) % Neut # (Auto) 4.9 (1.4-5.7) K/uL Lymph # (Auto) 2.6 H (0.6-2.4) K/uL [place] # (Auto) 0.7 (0.0-0.8) K/uL Eos # (Auto) 0.2 (0.0-0.7) K/uL Baso # (Auto) 0.0 (0.0-0.1) K/uL Nucleated RBC % 0.0 /100WBC Nucleated RBCs # 0 K/uL Sodium 144 (136-145) mmol/L Potassium 4.1 (3.5-5.1) mmol/L Chloride 110 H (98-107) mmol/L Carbon Dioxide 23.3 (21.0-32.0) mmol/L BUN 22 H (7.0-18.0) mg/dL Creatinine 0.9 (0.6-1.0) mg/dL Est Cr Clr Drug Dosing 85.59 mL/min Estimated GFR (MDRD) > 60.0 ml/min Glucose 85 (74-106) mg/dL Calcium 7.8 L (8.5-10.1) mg/dL Total Bilirubin 1.1 H (0.2-1.0) mg/dL AST 11 L (15-37) IU/L ALT 20 (14-63) IU/L Alkaline Phosphatase 51 (46-116) U/L Troponin I (0.000-0.056) ng/mL Total Protein 5.5 L (6.4-8.2) g/dL Albumin 3.0 L (3.4-5.0) g/dL Globulin 2.5 L (2.6-4.0) g/dL Albumin/Globulin Ratio 1.2 (0.9-1.6) HCG, Qual (NEG) Med Orders - Current: Current Medications Acetaminophen (Tylenol) 650 mg PO Q4H PRN PRN Reason: Pain (Mild 1-3)/fever Last Admin: 05/02/19 02:22 Dose: 650 mg Sodium Chloride (Normal Saline) 1,000 mls @ 150 mls/hr IV Q8H ANTHONY Last Admin: 05/02/19 08:57 Dose: 150 mls/hr Ondansetron HCl (Zofran) 4 mg IVPUSH Q4H PRN PRN Reason: Nausea Sumatriptan Succinate (Imitrex) 50 mg PO Q2H PRN PRN Reason: headache Last Admin: 05/02/19 08:56 Dose: 50 mg Discontinued Medications Sodium Chloride (Normal Saline) 1,000 mls @ 999 mls/hr IV .Bolus ONE Stop: 05/01/19 16:21 Last Admin: 05/01/19 15:27 Dose: 999 mls/hr Sodium Chloride (Normal Saline) 1,000 mls @ 999 mls/hr IV BOLUS ONE Stop: 05/02/19 02:08 Last Admin: 05/02/19 01:31 Dose: 999 mls/hr - Exam General: Alert, Oriented, Cooperative Lungs: Clear to Auscultation, Normal Respiratory Effort Cardiovascular: Regular Rate, Regular Rhythm GI/Abdominal Exam: Normal Bowel Sounds, Soft, Non-Tender Extremities: Normal Inspection, Normal Range of Motion, Non-Tender, No Pedal Edema Neurological: No New Focal Deficit Psy/Mental Status: Alert, Normal Affect, Normal Mood Sepsis Event Note - Evaluation Sepsis Screening Result: No Definite Risk - Focused Exam Vital Signs: Vital Signs Temp Pulse Resp BP Pulse Ox 05/02/19 03:28 96.9 F 72 17 90/55 L 97 05/02/19 02:45 75 90/50 L 05/02/19 01:00 95 17 85/42 L Date Exam was Performed: 05/02/19 Time Exam was Performed: 12:13 - Problem List & Annotations (1) Syncope SNOMED Code(s): 926550149 Code(s): R55 - SYNCOPE AND COLLAPSE Status: Acute Current Visit: Yes (2) Tobacco dependence SNOMED Code(s): 23207281 Code(s): F17.200 - NICOTINE DEPENDENCE, UNSPECIFIED, UNCOMPLICATED Status: Chronic Current Visit: Yes (3) Drug abuse SNOMED Code(s): 69918846 Code(s): F19.10 - OTHER PSYCHOACTIVE SUBSTANCE ABUSE, UNCOMPLICATED Status : Chronic Current Visit: No - Problem List Review Problem List Initiated/Reviewed/Updated: Yes - My Orders Last 24 Hours: My Active Orders 05/01/19 15:17 Telemetry Monitoring [Cardiac Monitoring] [RC] Q8H 05/01/19 15:44 Intake and Output [RC] Q12H Oxygen Therapy [RC] PRN Up ad Cheryle [RC] ASDIRECTED VTE/DVT Education [RC] PER UNIT ROUTINE Vital Signs [RC] Q4H Acetaminophen [Tylenol] 650 mg PO Q4H PRN Ondansetron [Zofran] 4 mg IVPUSH Q4H PRN Sequential Compression Device [OM.PC] Per Unit Routine Resuscitation Status Routine 05/01/19 15:45 Sodium Chloride 0.9% [Normal Saline] 1,000 ml IV Q8H 05/01/19 15:46 Antiembolic Devices [RC] PER UNIT ROUTINE 05/01/19 23:00 UA RFX CRISSY AND CULT IF INDIC [URIN] Urgent 05/01/19 23:01 DRUG SCREEN, URINE [URCHEM] Stat 05/01/19 Dinner Regular Diet [DIET] 05/02/19 06:00 Orthostatic Vital Signs [RC] AMPROC 05/02/19 08:37 SUMAtriptan [Imitrex] 50 mg PO Q2H PRN - Plan Plan:: This 43 year old female admitted with syncope 1. Syncope - BP remain softer, but review of history BPs tend to range 90-105 SBP. - Monitor on telemetry, no arrhythmias or events noted. - counseled on stopping methamphetamine use - Head CT negative, does not sound like BPPV. Dizziness occurs only after standing up and then she passes out. - Consider ZIO patch on discharge. - Obtain ECHo and carotid US today. - Consult PT for vestibular assessment 2. MIGUEL A - Improved with IVFs Diet: Regular VTE prophylaxis: SCDs CODE Status: Full Code Disposition: 1 day
--- NOTE | 2019-05-02 16:14 | US ---
Carotid ultrasound: Multiple real-time images were obtained. Plaque: No plaque is identified. Comparison: No prior carotid imaging is available. Findings: Velocity measurements: Right side: CCA has a peak systolic velocity of 1.89 m/s. ICA has a peak systolic velocity of 1.3 m/s and peak end-diastolic velocity of 0.44 m/s. ECA has a peak systolic velocity of 0.93 m/s. Vertebral artery has a peak systolic velocity of 0.91 m/s. ICA/CCA ratio is 1.14. Left side: CCA has a peak systolic velocity of 1.47 m/s. ICA has a peak systolic velocity of 1.30 m/s and peak end-diastolic velocity of 0.45 m/s. ECA has a peak systolic velocity of 1.22 m/s. Vertebral artery has a peak systolic velocity of 0.97 m/s. ICA/CCA ratio is 1.11. Other findings: Impression: 1. No plaque is identified. 2. Nothing is seen to indicate hemodynamic significant stenosis. Diagnostic code #1 This report was dictated in [place] Standard Time
[2019-05-03] MEDS: Sodium Chloride 0.9% 1,000 ML IV SCH (04:56)
[2019-05-03 06:09] LABS: BLOOD UREA NITROGEN,BUN 15 mg/dL (7.0-18.0); CARBON DIOXIDE,CO2 22.7 mmol/L (21.0-32.0); CHLORIDE,CL 112 mmol/L (98-107); GLUCOSE RANDOM 86 mg/dL (74-106); POTASSIUM,K 4.1 mmol/L (3.5-5.1); SODIUM,NA 145 mmol/L (136-145)
--- NOTE | 2019-05-03 09:11 | PCM.DCSUM1 ---
Discharge Summary - Hospital Course Brief History: This 43 year old female with pmh of dizziness and syncope along with Methamphetamine use and tobacco use presented to the ED today with concerns of syncope. She reports last night she got up and went to the bathroom and passed out after she got in the bathroom, woke up shortly after by roommate who heard her fall. Then today she was at work and got up from sitting felt very flushed and warm then suddenly passed out again. She denies palpitations, seizure activity, no urine/bowel incontinence with episodes. No increase in dizziness with head movement, no fevers or chills, no sinus congestion or ear pain. She reports she used methamphetamines 4 days ago with her boyfriend, she reports she doesn't use it often but uses it to be intimate with her boyfriend. She reports she eats and drinks well when she uses, but after she is not hungry and doesn't drink much. She denies abdominal pain, diarrhea or constipation. No dysuria or other urinary concerns. She otherwise is healthy, no HTN or DM. She smokes cigarettes 1/4 ppd, no alcohol use and uses meth as stated above. Unsure of family history as she was adopted. In the ED CBC WNL, hgb 15.0. BUN 22, Cr 1.0, elevated from previous ED visits. Bili 1.5, no ALT or AST elevation. EKG SR, no block or bradycardia noted. BP initialy 118 SBP. Orthostatic VS obtained which showed BP dropping from high 90s to 80s SBP and she became dizzy with standing. 1 L NS bolus given at that time. Will admit observation for syncope Diagnosis: Stroke: No - Discharge Data Discharge Date: 05/03/19 Discharge Disposition: Home, Self-Care 01 Condition: Stable - Referral to Home Health Primary Care Physician: PCP None - Discharge Diagnosis/Problem(s) (1) Syncope SNOMED Code(s): 796909390 ICD Code: R55 - SYNCOPE AND COLLAPSE Status: Acute Current Visit: Yes (2) Tobacco dependence SNOMED Code(s): 29456837 ICD Code: F17.200 - NICOTINE DEPENDENCE, UNSPECIFIED, UNCOMPLICATED Status : Chronic Current Visit: Yes (3) Drug abuse SNOMED Code(s): 44996739 ICD Code: F19.10 - OTHER PSYCHOACTIVE SUBSTANCE ABUSE, UNCOMPLICATED Status : Chronic Current Visit: No - Patient Summary/Data Consults: Consultations 05/02/19 11:02 Consult to Physical Therapy [PT Evaluation and Treatment] [CONS] Routine - Patient Instructions Diet: Usual Diet as Tolerated Activity: As Tolerated, No Strenuous Activities Driving: Do Not Drive Showering/Bathing: May Shower Notify Provider of: Fever, Increased Pain, Swelling and Redness, Drainage, Nausea and/or Vomiting - Discharge Plan *PRESCRIPTION DRUG MONITORING PROGRAM REVIEWED*: Not Applicable *COPY OF PRESCRIPTION DRUG MONITORING REPORT IN PATIENT AIDA: Not Applicable Home Medications: Home Meds . [No Known Home Meds] 04/13/19 [History] Oxygen Therapy Mode: Room Air Referrals: Luis Kingsley MD [Physician] - 05/17/19 9:15 am PCP,None [Primary Care Provider] - (establish care with a PCP in 1- 2 weeks) - Discharge Summary/Plan Comment DC Time >30 min.: No Discharge Summary/Plan Comment: Admitting Diagnoses: Syncope Dehydration Orthostatic Hypotension Discharge Diagnoses: Syncope - resolved Dehydration -resolved Orthostatic Hypotension- resolved Other PMH: Substance abuse Migraines Magdalena was admitted secondary to syncope. She was noted to be dehydrated and have Orthostatic hypotension. She was treated with IVFs, which resolved dehydration. Head CT negative. Carotid US negative as well. Telemetry negative for arrhythmias. PT evaluated her and felt she had vestibular hypofunction on the R, she gave her exercises and follow up as an outpatient. Today Magdalena is feeling much better and is requesting discharge. We discussed stopping methamphetamine use as this could be contributing to syncope and dehydration. She verbalized understanding. She will be discharged home today, follow up with PCP in 1 week. return to ED or clinic if concerns should arise. - General Info Date of Service: 05/03/19 Admission Dx/Problem (Free Text: Admission Diagnosis/Problem Admission Diagnosis/Problem Syncope Functional Status: Reports: Pain Controlled, Tolerating Diet, Ambulating, Urinating - Review of Systems General: Reports: No Symptoms HEENT: Reports: No Symptoms Pulmonary: Reports: No Symptoms. Denies: Shortness of Breath Cardiovascular: Reports: No Symptoms. Denies: Chest Pain, Lightheadedness Gastrointestinal: Reports: No Symptoms. Denies: Abdominal Pain Genitourinary: Reports: No Symptoms Musculoskeletal: Reports: No Symptoms Skin: Reports: No Symptoms Neurological: Reports: No Symptoms. Denies: Dizziness Psychiatric: Reports: No Symptoms - Patient Data Vitals - Most Recent: Last Vital Signs Temp 97 F 05/03/19 03:47 Pulse 60 05/03/19 03:47 Resp 12 05/03/19 03:47 BP 102/55 L 05/03/19 03:47 Pulse Ox 97 05/03/19 03:47 Orthostatic Blood Pressure [ 111/68 Standing] Orthostatic Blood Pressure [ 97/63 Sitting] Orthostatic Blood Pressure [ 101/42 Supine] Weight - Most Recent: 65.907 kg I&O - Last 24 hours: Intake & Output 05/02/19 05/03/19 05/03/19 22:59 06:59 14:59 Intake Total 3202 2544 Output Total 1000 1600 Balance 2202 944 Lab Results - Last 24 hrs: Laboratory Results - last 24 hr 05/02/19 05/02/19 05/03/19 Range/Units 12:30 12:30 05:35 Sodium 145 (136-145) mmol/L Potassium 4.1 (3.5-5.1) mmol/L Chloride 112 H (98-107) mmol/L Carbon Dioxide 22.7 (21.0-32.0) mmol/L BUN 15 (7.0-18.0) mg/dL Creatinine 0.7 (0.6-1.0) mg/dL Est Cr Clr Drug Dosing 110.04 mL/min Estimated GFR (MDRD) > 60.0 ml/min Glucose 86 (74-106) mg/dL Calcium 8.2 L (8.5-10.1) mg/dL Total Bilirubin 0.5 (0.2-1.0) mg/dL AST 8 L (15-37) IU/L ALT 20 (14-63) IU/L Alkaline Phosphatase 45 L (46-116) U/L Total Protein 5.1 L (6.4-8.2) g/dL Albumin 2.7 L (3.4-5.0) g/dL Globulin 2.4 L (2.6-4.0) g/dL Albumin/Globulin Ratio 1.1 (0.9-1.6) Urine Color YELLOW Urine Appearance HAZY Urine pH 6.0 (5.0-8.0) Ur Specific [place] 1.020 (1.001-1.035) Urine Protein NEGATIVE (NEGATIVE) mg/dL Urine Glucose (UA) NEGATIVE (NEGATIVE) mg/dL Urine Ketones NEGATIVE (NEGATIVE) mg/dL Urine Occult Blood MODERATE H (NEGATIVE) Urine Nitrite NEGATIVE (NEGATIVE) Urine Bilirubin NEGATIVE (NEGATIVE) Urine Urobilinogen 1.0 (<2.0) EU/dL Ur Leukocyte Esterase TRACE H (NEGATIVE) Urine RBC 0-3 (0-2/HPF) Urine WBC 3-6 (0-5/HPF) Ur Epithelial Cells FEW (NONE-FEW) Urine Bacteria FEW (NEGATIVE) Urine Mucus LIGHT (NONE-MOD) Urine Opiates Screen NEGATIVE (NEGATIVE) Ur Oxycodone Screen NEGATIVE (NEGATIVE) Urine Methadone Screen NEGATIVE (NEGATIVE) Ur Barbiturates Screen NEGATIVE (NEGATIVE) Ur Phencyclidine Scrn NEGATIVE (NEGATIVE) Ur Amphetamine Screen POSITIVE (NEGATIVE) U Methamphetamines Scrn NEGATIVE (NEGATIVE) U Benzodiazepines Scrn NEGATIVE (NEGATIVE) U Cocaine Metab Screen NEGATIVE (NEGATIVE) U Marijuana (THC) Screen NEGATIVE (NEGATIVE) Med Orders - Current: Current Medications Acetaminophen (Tylenol) 650 mg PO Q4H PRN PRN Reason: Pain (Mild 1-3)/fever Last Admin: 05/02/19 02:22 Dose: 650 mg Sodium Chloride (Normal Saline) 1,000 mls @ 150 mls/hr IV Q8H ANTHONY Last Admin: 05/03/19 04:56 Dose: 150 mls/hr Ondansetron HCl (Zofran) 4 mg IVPUSH Q4H PRN PRN Reason: Nausea Sumatriptan Succinate (Imitrex) 50 mg PO Q2H PRN PRN Reason: headache Last Admin: 05/02/19 08:56 Dose: 50 mg Discontinued Medications Sodium Chloride (Normal Saline) 1,000 mls @ 999 mls/hr IV .Bolus ONE Stop: 05/01/19 16:21 Last Admin: 05/01/19 15:27 Dose: 999 mls/hr Sodium Chloride (Normal Saline) 1,000 mls @ 999 mls/hr IV BOLUS ONE Stop: 05/02/19 02:08 Last Admin: 05/02/19 01:31 Dose: 999 mls/hr - Exam General: Reports: Alert, Oriented Cardiovascular: Reports: Regular Rate, Regular Rhythm GI/Abdominal Exam: Normal Bowel Sounds, Soft, Non-Tender Back Exam: Reports: Normal Inspection, Full Range of Motion Extremities: Normal Inspection, Normal Range of Motion, Non-Tender, No Pedal Edema Neurological: Reports: No New Focal Deficit Psy/Mental Status: Reports: Alert, Normal Affect, Normal Mood
--- NOTE | 2019-05-04 11:46 | ECHO ---
EXAM DATE: 05/01/19 PATIENT'S AGE: 43 The echocardiogram report can be seen in this patient's EMR (Electronic Medical Record) in the REPORTS section. The report has also been scanned into PACS. CLAYTON
== END 2019-05-03 14:00 | disposition home or self-care (01) ==
LOC: MW.ED 12:40 → MW.MS 15:31
PROVIDERS: ADMIT Student in an Organized Health Care Education/Training Program; ATTEND Student in an Organized Health Care Education/Training Program
DX: R55 Syncope and collapse (principal); E86.0 Dehydration; I95.1 Orthostatic hypotension; N17.9 Acute kidney failure, unspecified; F17.210 Nicotine dependence, cigarettes, uncomplicated; F15.10 Other stimulant abuse, uncomplicated
CPT/HCPCS: 36415; 70450; 71046; 80053; 80305; 81001; 84484; 84703; 85025; 87086; 93005; 93306; 93880; 97110; 97161; 99285; A9270; J7030; 96360; 96361; 99283; G0378

== ENCOUNTER 2020-03-16 09:41 | Emergency (ER) | payer SELFPAY ==
--- NOTE | 2020-03-16 10:01 | EDM.PDOC ---
ED HPI GENERAL MEDICAL PROBLEM - General Chief Complaint: Eye Problems Stated Complaint: CONTACT STUCK IN EYE Time Seen by Provider: 03/16/20 09:51 Source of Information: Reports: Patient History Limitations: Reports: No Limitations - History of Present Illness INITIAL COMMENTS - FREE TEXT/NARRATIVE: Patient is a 44-year-old female presents today for possible contact being stuck in her left eye. Patient states that she tried to flush it out yesterday without success. Patient denies any vision changes or discharge from the eye. Patient denies any other complaints. - Related Data Allergies Allergy/AdvReac Type Severity Reaction Status Date / Time banana Allergy Airway Verified 03/16/20 09:59 Tightness diphenhydramine Allergy Hives Verified 03/16/20 09:59 [From Benadryl] Latex, Natural Rubber Allergy Hives Verified 03/16/20 09:59 Home Meds: Home Meds . [No Known Home Meds] 04/13/19 [History] Past Medical History - Past Health History Medical/Surgical History: Denies Medical/Surgical History Cardiovascular History: Reports: Syncope Respiratory History: Reports: None Gastrointestinal History: Reports: None Genitourinary History: Reports: None Other TRANSPORTATION SUPERINTENDENT History: 2 c-sections Psychiatric History: Reports: None - Infectious Disease History Infectious Disease History: Reports: None - Past Surgical History HEENT Surgical History: Reports: Other (See Below) Other HEENT Surgeries/Procedures: wisdom teeth removed Cardiovascular Surgical History: Reports: None Female Surgical History: Reports: Section Social & Family History - Family History Family Medical History: No Pertinent Family History - Caffeine Use Caffeine Use: Reports: Coffee, Energy Drinks, Soda, Tea ED ROS GENERAL - Review of Systems Review Of Systems: See Below Constitutional: Reports: No Symptoms HEENT: Reports: Eye Pain Respiratory: Reports: No Symptoms Cardiovascular: Reports: No Symptoms Endocrine: Reports: No Symptoms GI/Abdominal: Reports: No Symptoms : Reports: No Symptoms Musculoskeletal: Reports: No Symptoms Skin: Reports: No Symptoms Neurological: Reports: No Symptoms Psychiatric: Reports: No Symptoms Hematologic/Lymphatic: Reports: No Symptoms Immunologic: Reports: No Symptoms ED EXAM GENERAL W FULL EYE - Physical Exam Exam: See Below Exam Limited By: No Limitations General Appearance: Alert, WD/WN Eye Exam: Bilateral Eye: EOMI, PERRL Eyelids: Bilateral: Normal Appearance Conjunctiva & Sclera: Bilateral: Normal Appearance Cornea Exam: Bilateral: Normal Appearance Extraocular Movements: Bilateral: Intact Pupils: Normal Accommodation Neurological: Alert, Oriented, Normal Cognition Course - Vital Signs Last Recorded V/S: Last Vital Signs Temp 98.6 F 03/16/20 10:00 Pulse 75 03/16/20 10:00 Resp 17 03/16/20 10:00 BP 109/58 L 03/16/20 10:00 Pulse Ox 98 03/16/20 10:00 - Orders/Labs/Meds Meds: Medications Discontinued Medications Generic Name Dose Route Start Last Admin Trade Name Nida PRN Reason Stop Dose Admin Fluorescein Sodium 1 mg 03/16/20 10:11 03/16/20 10:43 Ful-Maribeth EYELF 03/16/20 10:12 Not Given ONETIME ONE Tetracaine HCl 2 ml 03/16/20 10:11 03/16/20 10:24 Tetracaine 0.5% Steri-Unit Renae EYELF 03/16/20 10:12 2 ml ASDIRECTED ONE Administration - Re-Assessments/Exams Free Text/Narrative Re-Assessment/Exam: 03/16/20 11:36 We did not see a contact on examination. We also did a bedside ultrasound did not show any foreign bodies. Also there was not exam that did not show any corneal abrasions or ulcers. There is no signs of any contact or foreign bodies. Departure - Departure Time of Disposition: 11:37 Disposition: Home, Self-Care 01 Condition: Good Clinical Impression: Burning sensation of eye - Discharge Information *PRESCRIPTION DRUG MONITORING PROGRAM REVIEWED*: Not Applicable *COPY OF PRESCRIPTION DRUG MONITORING REPORT IN PATIENT AIDA: Not Applicable Instructions: Eye Foreign Body, [id number] Referrals: PCP,None [Primary Care Provider] - Forms: ED Department Discharge Additional Instructions: The following information is given to patients seen in the emergency department who are being discharged to home. This information is to outline your options for follow-up care. We provide all patients seen in our emergency department with a follow-up referral. The need for follow-up, as well as the timing and circumstances, are variable depending upon the specifics of your emergency department visit. If you don't have a primary care physician on staff, we will provide you with a referral. We always advise you to contact your personal physician following an emergency department visit to inform them of the circumstance of the visit and for follow-up with them and/or the need for any referrals to a consulting specialist. The emergency department will also refer you to a specialist when appropriate. This referral assures that you have the opportunity for follow-up care with a specialist. All of these measure are taken in an effort to provide you with optimal care, which includes your follow-up. Under all circumstances we always encourage you to contact your private physician who remains a resource for coordinating your care. When calling for follow-up care, please make the office aware that this follow-up is from your r [facility] emergency room visit. If for any reason you are refused follow-up, please contact the [facility] Emergency Department at and asked to speak to the emergency department charge nurse. Please follow up with your primary care physician. If you do not have a primary care physician, see below: [facility] [address] [place] [id number] [facility] [address] [place] [id number] Follow-up with ophthalmology or any creative specialist. We do not see the contact there. If you have any change in vision no other complaints please return to the ED. Sepsis Event Note (ED) - Focused Exam Vital Signs: Vital Signs Temp Pulse Resp BP Pulse Ox 03/16/20 10:00 98.6 F 75 17 109/58 L 98 - Assessment/Plan Assessment:: Patient is a 44-year-old female who presents today for having a possible context of an MRI. There is no contact seen on exam with attempted ultrasound to locate.
[2020-03-16] MEDS: Tetracaine HCl/PF 0.5% 4 ML Bottle EYELF ONE (10:24)
[2020-03-16] MEDS: Fluorescein 1 MG Ophth Strip EYELF ONE (10:43)
== END 2020-03-16 11:50 | disposition home or self-care (01) ==
LOC: MW.ED 09:41
DX: H57.9 Unspecified disorder of eye and adnexa (principal); Z91.018 Allergy to other foods; Z91.040 Latex allergy status; Z88.8 Allergy status to other drugs, medicaments and biological substances
CPT/HCPCS: 99282; 99283